=== PATIENT | male | born 1955 | race Caucasian/White ===

== ENCOUNTER 2016-05-12 16:59 | Emergency (ER) | payer OTHER ==
[~2016-05-12] VITALS: Ht 172.7 cm; Wt 102.1 kg
[2016-05-12 17:11] VITALS: BP_SYST 157
--- NOTE | 2016-05-12 17:31 | NUR ---
Patient to ER bed 5 to gown for evaluation. Side rails up. Report given to Jessica PLUNKETT.
--- NOTE | 2016-05-12 17:45 | NUR ---
Patient to ER C/O left shoulder pain since 2 days ago. Patient states that he has been playing catch with this son and after he noticed the pain. States the pain is mild 5-6/10 but it interfers with this ADLS. No deformity or bruising, denies trauma. AAOx4, unlabored breathing, no signs of acute distress.
--- NOTE | 2016-05-12 18:08 | NUR ---
ER MD Velasquez at bedside evaluating the patient
[2016-05-12] MEDS ORDERED: IBUPROFEN 800 MG TABLET PO ONE (19:00)
[2016-05-12 19:23] VITALS: BP_SYST 135
--- NOTE | 2016-05-12 19:23 | NUR ---
Patient given written and verbal discharge instructions and verbalizes understanding. ER MD Velasquez discussed with patient the results and treatment provided. Patient in stable condition. ID arm band removed. Rx of motrin & norco given. Patient educated on pain management and to follow up with PMD. Pain Scale 0/10. Opportunity for questions provided and answered.
== END 2016-05-12 19:23 | disposition home or self-care (01) ==
LOC: SED 16:59
DX: S43.402A Unspecified sprain of left shoulder joint, initial encounter (principal); X58.XXXA Exposure to other specified factors, initial encounter; Y93.64 Activity, baseball; Y92.39 Other specified sports and athletic area as the place of occurrence of the external cause; Y99.8 Other external cause status
CPT/HCPCS: 73030; 99284